=== PATIENT | female | born 1995 | race Two or more races ===

== ENCOUNTER → 2017-04-07 03:12 | Emergency (ER) | payer OTHER ==
--- NOTE | 2017-04-07 07:07 | ED ---
Cynthia Lomeli Rebecca, scribed for Erick Cheung MD on 04/07/17 at 0334 . Substance Abuse/Use - HPI Summary HPI Summary: Pt is a 21 y/o F BIBA who presents to ED with EtOH intoxication. Per police, the pt was found in the bathroom by her friends who decided to call campus police/EMS. 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 Police report the pt has become more responsive/alert while en route to the ED. Level 5 caveat due to EtOH intoxication. - History Of Current Complaint Chief Complaint: EDSubstanceAbuse Stated Complaint: 2208/ALCOHOL CONSUMPTION Hx Obtained From: EMS Hx From Patient Unobtainable Due To: Other - EtOH intoxication Ingestion History: Type/Name Of Drug - EtOH Overdose Characteristics: Oral Character: Stuporous - Allergies/Home Medications Allergies/Adverse Reactions: Allergies Allergy/AdvReac Type Severity Reaction Status Date / Time No Known Allergies Allergy Verified 04/07/17 03:16 PMH/Surg Hx/FS Hx/Imm Hx Previously Healthy: No - UNKNOWN - Level 5 caveat due to EtOH intoxication Infectious Disease History: No Infectious Disease History: Denies: Traveled Outside the [place] in Last 30 Days - Family History Known Family History: Positive: Hypertension - Social History Alcohol Use: Occasionally Substance Use Type: Reports: None Smoking Status (MU): Never Smoked Tobacco Review of Systems - ROS Summary Review of Systems Summary: Level 5 caveat due to EtOH intoxication. Negative: Fever Positive: Other - Stuporous secondary to EtOH intoxication All Other Systems Reviewed And Are Negative: No Physical Exam - Summary Physical Exam Summary: General: well-appearing, no pain distress Skin: warm, color reflects adequate perfusion, dry Head: normal Eyes: EOMI, CHRISTA ENT: normal Neck: supple, nontender Respiratory: CTA, breath sounds present Cardiovascular: RRR Abdomen: soft, nontender Bowel: present Musculoskeletal: normal, strength/ROM intact Neurological: normal, sensory/motor intact, A&O x3 Psychological: stuporous, but emotional and talking Triage Information Reviewed: Yes Vital Signs On Initial Exam: Initial Vitals Temp Pulse Resp BP Pulse Ox 99.2 F 119 18 118/69 100 04/07/17 03:15 04/07/17 03:15 04/07/17 03:15 04/07/17 03:15 04/07/17 03:15 Vital Signs Reviewed: Yes Completion Of Physical Exam Limited Due To: Level 5 - EtOH intoxication Diagnostics - Vital Signs Vital Signs Temp Pulse Resp BP Pulse Ox 04/07/17 03:15 99.2 F 119 18 118/69 100 - Laboratory Lab Statement: Any lab studies that have been ordered have been reviewed, and results considered in the medical decision making process. Course/Dx - Course Assessment/Plan: Pt is a 21 y/o F BIBA who presents to ED with EtOH intoxication. Per police, the pt was found in the bathroom by her friends who decided to call campus police/EMS. 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 Police report the pt has become more responsive/alert while en route to the ED. DISCHARGE HOME. NO CRITICAL CARE TIME. Level 5 caveat due to EtOH intoxication. Pt will be D/C to home with Dx of alcohol intoxication. - Diagnoses Provider Diagnoses: Alcohol intoxication Discharge - Discharge Plan Condition: Stable Disposition: HOME Patient Education Materials: Alcohol Intoxication (ED) Referrals: [facility] - Solomon CORDERO [Primary Care Provider] - Additional Instructions: FOLLOW UP WITH YOUR DOCTOR. RETURN TO THE EMERGENCY DEPARTMENT FOR ANY WORSENING OF YOUR CONDITION OR QUESTIONS OR CONCERNS. The documentation as recorded by the Cynthia garcia Rebecca accurately reflects the service I personally performed and the decisions made by me, Erick Cheung MD.
[2017-04-07 08:54] VITALS: BP 102/67
== END | disposition home or self-care (01) ==
LOC: ED 03:12
DX: F10.129 Alcohol abuse with intoxication, unspecified (principal)
CPT/HCPCS: 99283

== ENCOUNTER 2017-07-30 16:54 | Emergency (ER) | payer OTHER ==
[2017-07-30 18:08] VITALS: BP 116/79
--- NOTE | 2017-07-30 18:55 | UC ---
FLU HPI - HPI Summary HPI Summary: 3 DAYS OF COUGH, CONGESTION, ST, FATIGUE, SUBJECTIVE FEVER/CHILLS, MYALGIAS. NO FLU SHOT THIS SEASON. - History of Current Complaint Chief Complaint: UCGeneralIllness Stated Complaint: COUGH,ACHES Time Seen by Provider: 07/30/17 18:34 Hx Obtained From: Patient Hx Last Menstrual Period: 07/05/17 Onset/Duration: Gradual Onset, Lasting Days, Still Present Severity Currently: Moderate Severity Initially: Moderate Pain Intensity: 4 Pain Scale Used: 0-10 Numeric Associated Signs & Symptoms: Positive: Fever, Myalgia, Cough, Sore Throat, Nasal Congestion - Allergy/Home Medications Allergies/Adverse Reactions: Allergies Allergy/AdvReac Type Severity Reaction Status Date / Time No Known Allergies Allergy Verified 07/30/17 18:08 Home Medications: Home Medications Control PO DAILY WITH MEAL 07/30/17 [History] PMH/Surg Hx/FS Hx/Imm Hx Previously Healthy: Yes - Surgical History Surgical History: None Surgery Procedure, Year, and Place: 2014 - Family History Known Family History: Positive: Hypertension - Social History Alcohol Use: Occasionally Substance Use Type: None Smoking Status (MU): Never Smoked Tobacco Review of Systems Constitutional: Fever, Chills, Fatigue ENT: Sore Throat, Nasal Discharge Respiratory: Cough Cardiovascular: Negative Gastrointestinal: Nausea Musculoskeletal: Myalgia Neurological: Headache All Other Systems Reviewed And Are Negative: Yes Physical Exam Triage Information Reviewed: Yes Appearance: No Pain Distress, Well-Nourished, Ill-Appearing - MILD Vital Signs: Initial Vital Signs Temp 98.5 F 07/30/17 18:03 Pulse 114 07/30/17 18:03 Resp 18 07/30/17 18:03 BP 116/79 07/30/17 18:03 Pulse Ox 100 07/30/17 18:03 Vital Signs Reviewed: Yes Eyes: Positive: Conjunctiva Clear ENT: Positive: Hearing grossly normal, Pharynx normal, TMs normal Neck: Positive: Supple, Nontender, No Lymphadenopathy Respiratory Exam: Normal Cardiovascular: Positive: Tachycardia Abdomen Description: Positive: Soft Musculoskeletal: Positive: No Edema Neurological: Positive: Alert Psychological: Positive: Age Appropriate Behavior Skin: Negative: rashes Diagnostics - Laboratory Diagnostic Studies Completed/Ordered: SWAB POSITIVE INFLUENZA B Flu Course/Dx - Differential Dx/Diagnosis Provider Diagnoses: INFLUENZA B Discharge - Discharge Plan Condition: Stable Disposition: HOME Prescriptions: Oseltamivir CAP* [Tamiflu CAP*] 75 mg PO BID #9 cap Patient Education Materials: Influenza (ED) Referrals: [facility] - Solomon CORDERO [Primary Care Provider] - If Needed Additional Instructions: SWAB POSITIVE FOR INFLUENZA B. TAMIFLU TWICE DAILY FOR 5 DAYS. OTC MEDS NEEDED FOR FEVER, BODY ACHES. STAY WELL HYDRATED AND RESTED. SEEK FOLLOW-UP IF YOU ARE NOT IMPROVING EXPECTED.
[2017-07-30] MEDS ORDERED: Oseltamivir CAP* 75 MG CAP PO ONE (19:12)
== END 2017-07-30 19:23 | disposition home or self-care (01) ==
LOC: UCEAST 16:54
DX: J10.1 Influenza due to other identified influenza virus with other respiratory manifestations (principal)
CPT/HCPCS: 87502; 99212; A9270-GY; G0463